=== PATIENT | male | born 1980 | race Caucasian/White ===

== ENCOUNTER 2018-07-17 18:59 | Observation (INO) ==
[2018-07-17 20:16] LABS: Bilirubin,Urine Negative (Negative); Blood,Urine Negative (Negative); Clarity,Urine Clear (Clear); Color,Urine Yellow (Yellow); Glucose,Urine (UA) Normal (Normal); Ketones,Urine Negative (Negative); Leukocyte Esterase,Urine Negative (Negative); Nitrite,Urine Negative (Negative); Protein,Urine Negative (Neg-Trace); Specific Gravity,Urine 1.018 (1.010-1.025); Urobilinogen,Urine Normal (Normal)
[2018-07-17 20:17] LABS: Basophils % 0.4 %; Eosinophils # 0.3 K/mcL (0.0-0.6); Eosinophils % 3.1 %; Hematocrit 42.3 % (37.5-50.1); Immature Granulocytes % 0.1 % (0-4); Lymphocytes # 2.9 K/mcL (0.6-4.6); Lymphocytes % 29.2 %; Mean Corpuscular HGB Conc 33.1 g/dL (31.6-35.5); Mean Corpuscular Hemoglobin 28.7 pg (28.0-33.3); Mean Corpuscular Volume 86.7 fL (83.0-100.0); Mean Platelet Volume 11.2 fL (9.4-12.4); Monocytes # 0.6 K/mcL (0.0-1.3); Platelet Count 205 K/mcL (140-400); Red Blood Count 4.88 M/mcL (4.19-5.50); Red Cell Distribution Width 13.2 % (11.5-14.5); Segmented Neutrophils % 61.2 %
[2018-07-17] MEDS ORDERED: Isovue-370 500 ML INFUS..BTL IV ONE (20:23)
[2018-07-17 20:35] LABS: Troponin I < 0.03 ng/mL (< 0.04)
[2018-07-17 20:37] LABS: Amphetamine Screen,Urine Negative ng/mL (Cutoff=1000); Barbiturate Screen,Urine Negative ng/mL (Cutoff=200); Benzodiazepines Screen,Urine Negative ng/mL (Cutoff=200); Cannabinoid Screen,Urine Negative ng/mL (Cutoff = 50); Cocaine Screen,Urine Negative ng/mL (Cutoff= 300); Opiate Screen,Urine Negative ng/mL (Cutoff=300); Phencyclidine Screen,Urine Negative ng/mL (Cutoff=25)
[2018-07-17 20:38] LABS: BUN/Creatinine Ratio 17 (6-26); Blood Urea Nitrogen 18 mg/dL (6-20); Calcium 9.6 mg/dL (8.6-10.3); Carbon Dioxide 30 mEq/L (23-29); Chloride 103 mEq/L (98-107); Glucose 118 mg/dL (70-105); Osmolality,Calculated 293 (280-300); Potassium 4.1 mEq/L (3.5-5.1); Sodium 140 mEq/L (136-145); eGFR For Non-African Americans > 60 (> 60)
[2018-07-17] MEDS ORDERED: Aspirin 81 MG TAB.CHEW PO ONE (21:14)
--- NOTE | 2018-07-17 21:21 | Emergency Department Note ---
Disposition Clinical Impression: Left face and left arm tingling Chest pain Qualifiers: Chest pain type: unspecified Qualified Code(s): R07.9 - Chest pain, unspecified Disposition: Admitted As Inpatient Condition: Good Referrals: NONE,PCP [Primary Care Provider] - Time of Disposition: 21:23 Chest Pain HPI - General Chief Complaint: ED Chest Pain Stated Complaint: CP Time Seen by Provider: 07/17/18 19:03 Source: patient, family Limitations: no limitations Vital Signs Reviewed: Yes Nursing Notes Reviewed: Yes - History of Present Illness HPI Narrative: Patient presents to the ED from the [facility] with the chief complaint of chest pain. He denies any medical history, but states he is in the [facility]. Denies any drug use. States that about 4 hours ago he started having left- sided centralized chest pressure and heaviness that radiates into his left arm. States he has never had pain like this before. He does state that he just found out his father has about 90 days left to live due to liver cirrhosis and is not a transplant candidate. States that he started "freaking out after that." He is also complaining of some left-sided facial tingling and left hand tingling that started around that time as well. States he also has a migraine. Denies any fever or chills. No changes in vision. No difficulty breathing. No abdominal pain, nausea, vomiting or diarrhea. No rash. No pain or swelling in his legs. Severity scale (1-10): 7 - Related Data Allergies Allergy/AdvReac Type Severity Reaction Status Date / Time No Known Allergies Allergy Verified 07/17/18 19:11 Review of Systems: As reviewed in the HPI. All other systems reviewed are negative or normal. Chest Pain PMH - Past Medical History Medical history: Reports: hypertension - Social History Smoking Status: Current every day smoker Alcohol use: Reports: none Drug use: Reports: none Physical Exam CONSTITUTIONAL: [well appearing, alert and in no acute distress] EYES: [EOMI, clear conjunctiva, PERRLA] HENT: [Normocephalic, atraumatic, moist mucus membranes, normal oropharynx] NECK: [normal inspection, full ROM, trachea midline, no obvious swelling] PULMONARY: [normal lung sounds bilaterally, normal chest rise and fall, no respiratory distress or stridor, no wheezes, no rales, no rhonchi CARDIOVASCULAR: [regular rate, regular rhythm, normal heart sounds, no murmurs, distal extremities are warm and well perfused] GASTROINSTESTINAL: [soft, non-tender, non-rigid, non-distended, no guarding, no rebound, normal bowel sounds] GENITOURINARY/RECTAL: [deferred] NEUROLOGIC: [Alert, oriented x3, normal speech, moves all extremities, GCS 15, cranial nerves II through XII intact, strength and sensation normal throughout area. Patient does report tingling in his left face and left hand on the palmar aspect, but has normal sensation. Normal gait] EXTREMITIES: [Normal inspection, full ROM, no tenderness, no pedal edema, normal capillary refill] MUSCULOSKELETAL: [no gross deformities, atraumatic] SKIN: [No cyanosis, no diaphoresis, normal color, warm, no rash] PSYCHIATRIC: [anxious] - General Limitations: no limitations General appearance: alert, in no apparent distress Course Course Narrative: Patient presenting with multiple symptoms. We will get cardiac workup and head CT. Chest x-ray showed a potential aortic abnormality which could be related to patient positioning, however, he is hypertensive and complaining of left-sided chest pain, so we will get a CTA of his chest, abdomen and pelvis. CT of his head showed a possible left basal ganglia infarct which is not consistent with his current clinical symptoms, but they did recommend an MRI. Patient was admitted to the hospital service under Dr. Hidalgo for further cardiac evaluation and MRI in the morning. CTA negative for dissection Vital Signs Temperature 98.7 F 07/17/18 19:09 Pulse Rate 96 07/17/18 19:09 Respiratory Rate 16 07/17/18 19:09 Blood Pressure 147/103 07/17/18 19:09 O2 Sat by Pulse Oximetry 98 07/17/18 19:09 Temperature 98.7 F 07/17/18 19:09 Pulse Rate 96 07/17/18 19:09 Respiratory Rate 16 07/17/18 19:09 Blood Pressure 147/103 07/17/18 19:09 O2 Sat by Pulse Oximetry 98 07/17/18 19:09 Oxygen Delivery Oxygen Delivery Room Air Chest Pain - Medical Records Medical records reviewed: Yes I reviewed the patient's medical records. - Lab Data Lab results reviewed: Yes I reviewed the patient's lab results. Result diagrams: 07/17/18 19:52 07/17/18 19:52 Lab Results 07/17/18 07/17/18 07/17/18 Range/Units 19:52 19:52 19:52 WBC 9.8 (4.3-11.1) K/mcL RBC 4.88 (4.19-5.50) M/mcL Hgb 14.0 (12.9-16.9) g/dL Hct 42.3 (37.5-50.1) % MCV 86.7 (83.0-100.0) fL MCH 28.7 (28.0-33.3) pg MCHC 33.1 (31.6-35.5) g/dL RDW 13.2 (11.5-14.5) % Plt Count 205 (140-400) K/mcL MPV 11.2 (9.4-12.4) fL Immature Gran % 0.1 (0-4) % Seg Neutrophils % 61.2 % Lymphocytes % 29.2 % Monocytes % 6.0 % Eosinophils % 3.1 % Basophils % 0.4 % Neutrophils # 6.0 (1.6-8.9) K/mcL Lymphocytes # 2.9 (0.6-4.6) K/mcL Monocytes # 0.6 (0.0-1.3) K/mcL Eosinophils # 0.3 (0.0-0.6) K/mcL Basophils # 0.0 (0.0-0.2) K/mcL Sodium (136-145) mEq/L Potassium (3.5-5.1) mEq/L Chloride (98-107) mEq/L Carbon Dioxide (23-29) mEq/L BUN (6-20) mg/dL Creatinine (0.70-1.30) mg/dL Est GFR ( Amer) (> 60) Est GFR (Non-Af Amer) (> 60) BUN/Creatinine Ratio (6-26) Glucose (70-105) mg/dL Calculated Osmolality (280-300) Calcium (8.6-10.3) mg/dL Troponin I (< 0.04) ng/mL Urine Color Yellow (Yellow) Urine Clarity Clear (Clear) Urine pH 7.0 (5.0-8.0) pH Units Ur Specific [place] 1.018 (1.010-1.025) Urine Protein Negative (Neg-Trace) mg/dL Urine Glucose (UA) Normal (Normal) mg/dL Urine Ketones Negative (Negative) mg/dL Urine Blood Negative (Negative) Urine Nitrite Negative (Negative) Urine Bilirubin Negative (Negative) Urine Urobilinogen Normal (Normal) mg/dL Ur Leukocyte Esterase Negative (Negative) Ur Culture Indicated? NO (NO) Urine Opiates Screen Negative (Pibqur=326) ng/mL Ur Barbiturates Screen Negative (Kxpzed=707) ng/mL Ur Phencyclidine Scrn Negative (Cutoff=25) ng/mL Ur Amphetamines Screen Negative (Qkysjg=9480) ng/mL U Benzodiazepines Scrn Negative (Weuwcy=638) ng/mL Urine Cocaine Screen Negative (Cutoff= 300) ng/mL U Marijuana (THC) Screen Negative (Cutoff = 50) ng/mL Ur Drug Screen Interp See Below 07/17/18 Range/Units 19:52 WBC (4.3-11.1) K/mcL RBC (4.19-5.50) M/mcL Hgb (12.9-16.9) g/dL Hct (37.5-50.1) % MCV (83.0-100.0) fL MCH (28.0-33.3) pg MCHC (31.6-35.5) g/dL RDW (11.5-14.5) % Plt Count (140-400) K/mcL MPV (9.4-12.4) fL Immature Gran % (0-4) % Seg Neutrophils % % Lymphocytes % % Monocytes % % Eosinophils % % Basophils % % Neutrophils # (1.6-8.9) K/mcL Lymphocytes # (0.6-4.6) K/mcL Monocytes # (0.0-1.3) K/mcL Eosinophils # (0.0-0.6) K/mcL Basophils # (0.0-0.2) K/mcL Sodium 140 (136-145) mEq/L Potassium 4.1 (3.5-5.1) mEq/L Chloride 103 (98-107) mEq/L Carbon Dioxide 30 H (23-29) mEq/L BUN 18 (6-20) mg/dL Creatinine 1.07 (0.70-1.30) mg/dL Est GFR ( Amer) > 60 (> 60) Est GFR (Non-Af Amer) > 60 (> 60) BUN/Creatinine Ratio 17 (6-26) Glucose 118 H (70-105) mg/dL Calculated Osmolality 293 (280-300) Calcium 9.6 (8.6-10.3) mg/dL Troponin I < 0.03 (< 0.04) ng/mL Urine Color (Yellow) Urine Clarity (Clear) Urine pH (5.0-8.0) pH Units Ur Specific [place] (1.010-1.025) Urine Protein (Neg-Trace) mg/dL Urine Glucose (UA) (Normal) mg/dL Urine Ketones (Negative) mg/dL Urine Blood (Negative) Urine Nitrite (Negative) Urine Bilirubin (Negative) Urine Urobilinogen (Normal) mg/dL Ur Leukocyte Esterase (Negative) Ur Culture Indicated? (NO) Urine Opiates Screen (Dvfnpy=363) ng/mL Ur Barbiturates Screen (Pprapr=066) ng/mL Ur Phencyclidine Scrn (Cutoff=25) ng/mL Ur Amphetamines Screen (Znqwlm=9863) ng/mL U Benzodiazepines Scrn (Cujtqc=524) ng/mL Urine Cocaine Screen (Cutoff= 300) ng/mL U Marijuana (THC) Screen (Cutoff = 50) ng/mL Ur Drug Screen Interp - Radiology Data Radiology results reviewed: Yes I reviewed the patient's radiology results. - EKG Data EKG attestation: Yes I reviewed and interpreted this EKG. EKG results narrative: Sinus rhythm, rate 97, normal axis, no acute ischemic change Heart Score - Score History: Moderately Suspicious EKG: Non Specific repolarisation Disturbance Age: Less than 45 Risk Factors: 1-2 risk factors Troponin: Less than normal limit HEART Score Total: 3
--- NOTE | 2018-07-17 21:45 | Emergency Department Note ---
Disposition Clinical Impression: Left face and left arm tingling Chest pain Qualifiers: Chest pain type: unspecified Qualified Code(s): R07.9 - Chest pain, unspecified Disposition: Admitted As Inpatient Condition: Good General Adult HPI - General Chief complaint: ED Chest Pain Stated complaint: CP Time Seen by Provider: 07/17/18 19:03 Source: patient, family Limitations: no limitations - History of Present Illness Pain Scale: 7 - Related Data Allergies Allergy/AdvReac Type Severity Reaction Status Date / Time No Known Allergies Allergy Verified 07/17/18 19:11 Past Medical History - Past Medical History Medical history: Reports: hypertension - Social History Smoking Status: Current every day smoker Alcohol use: Reports: none Drug use: Reports: none Physical Exam - General Limitations: no limitations General appearance: alert, in no apparent distress Course Vital Signs Temperature 98.7 F 07/17/18 19:09 Pulse Rate 96 07/17/18 19:09 Respiratory Rate 16 07/17/18 19:09 Blood Pressure 147/103 07/17/18 19:09 O2 Sat by Pulse Oximetry 98 07/17/18 19:09 Temperature 98.7 F 07/17/18 19:09 Pulse Rate 81 07/17/18 21:24 Respiratory Rate 14 07/17/18 21:24 Blood Pressure 146/94 07/17/18 21:24 O2 Sat by Pulse Oximetry 100 07/17/18 21:24 Oxygen Delivery Oxygen Delivery Room Air Medical Decision Making - Lab Data Result diagrams: 07/17/18 19:52 07/17/18 19:52 Lab Results 07/17/18 07/17/18 07/17/18 Range/Units 19:52 19:52 19:52 WBC 9.8 (4.3-11.1) K/mcL RBC 4.88 (4.19-5.50) M/mcL Hgb 14.0 (12.9-16.9) g/dL Hct 42.3 (37.5-50.1) % MCV 86.7 (83.0-100.0) fL MCH 28.7 (28.0-33.3) pg MCHC 33.1 (31.6-35.5) g/dL RDW 13.2 (11.5-14.5) % Plt Count 205 (140-400) K/mcL MPV 11.2 (9.4-12.4) fL Immature Gran % 0.1 (0-4) % Seg Neutrophils % 61.2 % Lymphocytes % 29.2 % Monocytes % 6.0 % Eosinophils % 3.1 % Basophils % 0.4 % Neutrophils # 6.0 (1.6-8.9) K/mcL Lymphocytes # 2.9 (0.6-4.6) K/mcL Monocytes # 0.6 (0.0-1.3) K/mcL Eosinophils # 0.3 (0.0-0.6) K/mcL Basophils # 0.0 (0.0-0.2) K/mcL Sodium (136-145) mEq/L Potassium (3.5-5.1) mEq/L Chloride (98-107) mEq/L Carbon Dioxide (23-29) mEq/L BUN (6-20) mg/dL Creatinine (0.70-1.30) mg/dL Est GFR ( Amer) (> 60) Est GFR (Non-Af Amer) (> 60) BUN/Creatinine Ratio (6-26) Glucose (70-105) mg/dL Calculated Osmolality (280-300) Calcium (8.6-10.3) mg/dL Troponin I (< 0.04) ng/mL Urine Color Yellow (Yellow) Urine Clarity Clear (Clear) Urine pH 7.0 (5.0-8.0) pH Units Ur Specific [place] 1.018 (1.010-1.025) Urine Protein Negative (Neg-Trace) mg/dL Urine Glucose (UA) Normal (Normal) mg/dL Urine Ketones Negative (Negative) mg/dL Urine Blood Negative (Negative) Urine Nitrite Negative (Negative) Urine Bilirubin Negative (Negative) Urine Urobilinogen Normal (Normal) mg/dL Ur Leukocyte Esterase Negative (Negative) Ur Culture Indicated? NO (NO) Urine Opiates Screen Negative (Esxxdk=113) ng/mL Ur Barbiturates Screen Negative (Jxrnip=760) ng/mL Ur Phencyclidine Scrn Negative (Cutoff=25) ng/mL Ur Amphetamines Screen Negative (Dogzvv=4437) ng/mL U Benzodiazepines Scrn Negative (Drrrcb=755) ng/mL Urine Cocaine Screen Negative (Cutoff= 300) ng/mL U Marijuana (THC) Screen Negative (Cutoff = 50) ng/mL Ur Drug Screen Interp See Below 07/17/18 Range/Units 19:52 WBC (4.3-11.1) K/mcL RBC (4.19-5.50) M/mcL Hgb (12.9-16.9) g/dL Hct (37.5-50.1) % MCV (83.0-100.0) fL MCH (28.0-33.3) pg MCHC (31.6-35.5) g/dL RDW (11.5-14.5) % Plt Count (140-400) K/mcL MPV (9.4-12.4) fL Immature Gran % (0-4) % Seg Neutrophils % % Lymphocytes % % Monocytes % % Eosinophils % % Basophils % % Neutrophils # (1.6-8.9) K/mcL Lymphocytes # (0.6-4.6) K/mcL Monocytes # (0.0-1.3) K/mcL Eosinophils # (0.0-0.6) K/mcL Basophils # (0.0-0.2) K/mcL Sodium 140 (136-145) mEq/L Potassium 4.1 (3.5-5.1) mEq/L Chloride 103 (98-107) mEq/L Carbon Dioxide 30 H (23-29) mEq/L BUN 18 (6-20) mg/dL Creatinine 1.07 (0.70-1.30) mg/dL Est GFR ( Amer) > 60 (> 60) Est GFR (Non-Af Amer) > 60 (> 60) BUN/Creatinine Ratio 17 (6-26) Glucose 118 H (70-105) mg/dL Calculated Osmolality 293 (280-300) Calcium 9.6 (8.6-10.3) mg/dL Troponin I < 0.03 (< 0.04) ng/mL Urine Color (Yellow) Urine Clarity (Clear) Urine pH (5.0-8.0) pH Units Ur Specific [place] (1.010-1.025) Urine Protein (Neg-Trace) mg/dL Urine Glucose (UA) (Normal) mg/dL Urine Ketones (Negative) mg/dL Urine Blood (Negative) Urine Nitrite (Negative) Urine Bilirubin (Negative) Urine Urobilinogen (Normal) mg/dL Ur Leukocyte Esterase (Negative) Ur Culture Indicated? (NO) Urine Opiates Screen (Pbqziv=099) ng/mL Ur Barbiturates Screen (Ncqnye=450) ng/mL Ur Phencyclidine Scrn (Cutoff=25) ng/mL Ur Amphetamines Screen (Dilwbq=1678) ng/mL U Benzodiazepines Scrn (Sslglt=664) ng/mL Urine Cocaine Screen (Cutoff= 300) ng/mL U Marijuana (THC) Screen (Cutoff = 50) ng/mL Ur Drug Screen Interp Attestation Statement - Attestation Attestation: I examined this patient and my medical decision-making was reviewed with the Resident Physician. I agree with the documented findings, disposition and treatment plan as described except to the extent set forth below. 38 yo M under lots of stress and anxiety presents with CP, headache, left face and arm tingling/numbness. no lab abn ekg ok admit for obs. CT head shows odd density in left basal ganglia. vss ekg ok
[2018-07-18] MEDS ORDERED: Acetaminophen 325 MG TABLET PO PRN (02:25)
[2018-07-18] MEDS ORDERED: Naloxone 0.4 MG/ML INJ IVP PRN (02:25)
--- NOTE | 2018-07-18 02:40 | Internal Med History&Physical ---
Date of Encounter: 07/18/18 Time of Encounter: 00:10 Internal Medicine - H&P: HPI Chief complaint: chest pain Admitted From: Emergency Dept Plans for Post Hospital Care: Home History of present illness: Mr. Quiñones is a 38 year old male who presents with a one day history of chest pain, pain and numbness which radiate to his left arm and shoulder, and mild shortness of breath. He was seen in the ER and had negative initial workup. He did have a TIA of the chest and abdomen which were negative. He also had a head CT given his left arm numbness. CT of the head revealed focal hypodensity in the left basal ganglia which was age indeterminate. As such, he was admitted to hospitalist service for further workup and care. Upon my assessment of the patient, patient is now chest pain-free. He does confirm history of chest pain with associated radiation to his left arm and neck and associated left arm numbness and shortness of breath. He has never had cardiac workup before. Regarding the head CT findings, he denies any prior stroke or injury. He lives in a [facility] house currently and has a history of extensive drug abuse in the past. He has been clean for 8 months now. He used to inject all kinds of drugs, including cocaine. Given his IV drug abuse history, I'm concerned about possible neurovascular complication, particularly with cocaine. Family history is positive for heart disease but negative for stroke. Past Med Surg Social Fam HX - Past Medical History Attestation: Yes The following information was validated with the patient. Source: patient Medical history: hypertension Psychiatric history: no psych history - Past Surgical History Surgical History: herniorrhaphy Additional surgical history: right testicle removed. 12 hernia repairs. 2 nose operations - Social History Smoking Status: Current every day smoker Alcohol use: none Drug use: none, other (former heavy IVDA; last use 8 months ago) Current living situation: Other ([facility] house) Activity Level: Independent ambulation - Family History Mother Hx Family Cardiac Disorders: Yes (HTN) Hx Family Endocrine Disorder: Yes (DM) Maternal Grandmother Living Status: Hx Family Neurologic Disorders: Yes (Stroke) Internal Medicine - H&P: Meds Metoprolol Tartrate [Lopressor] 50 mg PO DAILY 07/17/18 [History] Allergy/AdvReac Type Severity Reaction Status Date / Time No Known Allergies Allergy Verified 07/17/18 19:11 - Constitutional Constitutional: no chills, no fever(s), no night sweats - EENT Eyes: no blurry vision, no change in vision Ears: no ear pain, no tinnitus Nose, mouth and throat: no nasal congestion, no sinus pressure, no sore throat - Cardiovascular Cardiovascular ROS IM: chest pain, dyspnea, no diaphoresis, no orthopnea, no paroxysmal nocturnal dyspnea - Respiratory Respiratory: no cough, no hemoptysis, no chest congestion, no excessive phlegm production, no change in phlegm color - Gastrointestinal Gastrointestinal: no abdominal pain, no diarrhea, no hematemesis, no hematochezia, no melena, no nausea, no vomiting - Genitourinary Genitourinary ROS male: no dysuria, no flank pain, no hematuria - Musculoskeletal Musculoskeletal ROS IM: arthralgias (left shoulder), no back pain - Integumentary Integumentary IM: no rash, no jaundice - Neurological Neurological ROS: no abnormal movements, no abnormal speech, no convulsions, no dizziness, no focal weakness, no frequent falls, no headache(s) - Psychiatric Psychiatric: no anxiety, no depression - Endocrine Endocrine IM: no polydipsia, no polyuria - Allergic/Immunologic Allergic/Immunologic: no wheezing, no GI upset with certain foods - Constitutional Vitals: Temp Pulse Resp BP Pulse Ox 97.7 F 66 16 143/90 95 07/17/18 22:29 07/17/18 22:29 07/17/18 22:29 07/17/18 22:29 07/17/18 22:29 General appearance: Present: cooperative, A&O X 3, pleasant, answers questions appropriately Exam: see below - Head Head exam: Present: atraumatic, normal inspection - Eye Eye exam: Present: EOMI, PERRL. Absent: scleral icterus Pupils: Present: normal accommodation - ENT ENT exam: Present: mucous membranes dry, normal exam, normal oropharynx - Neck Neck exam general surgery: Present: full ROM, supple. Absent: tenderness, nuchal rigidity, thyromegaly - Respiratory Respiratory exam: Present: chest wall tenderness (sternum), CTAB. Absent: rales, respiratory distress, rhonchi, wheezes - Cardiovascular Cardiovascular exam: Present: RRR, +S1, +S2. Absent: diastolic murmur, systolic murmur - GI/Abdominal GI/Abdominal exam: Present: normal bowel sounds, soft. Absent: guarding, hepatomegaly, mass, rebound, splenomegaly, tenderness - Extremities Exam Extremities exam: Present: full ROM, normal capillary refill, warm, radial pulses palpable and symmetrical. Absent: joint swelling, pedal edema, tenderness - Back Exam Back exam: Absent: CVA tenderness (L), CVA tenderness (R) - Neurological Exam Neurological exam: Present: alert, CN II-XII intact, oriented X3, no focal deficits, strengths equal and symetr throughout - Psychiatric Psychiatric exam: Present: normal affect, normal mood - Skin Skin exam: Present: dry, intact, warm Internal Med - H&P Results - Labs CBC & Chem 7: 07/17/18 19:52 07/17/18 19:52 Labs: Short CBC 07/17/18 Range/Units 19:52 WBC 9.8 (4.3-11.1) K/mcL Hgb 14.0 (12.9-16.9) g/dL Hct 42.3 (37.5-50.1) % Plt Count 205 (140-400) K/mcL Neutrophils # 6.0 (1.6-8.9) K/mcL BMP 07/17/18 19:52 Sodium 140 Potassium 4.1 Chloride 103 Carbon Dioxide 30 H BUN 18 Creatinine 1.07 Glucose 118 H Calcium 9.6 Cardiac Enzymes 07/17/18 Range/Units 19:52 Troponin I < 0.03 (< 0.04) ng/mL Urine 07/17/18 Range/Units 19:52 Urine Color Yellow (Yellow) Urine Clarity Clear (Clear) Urine pH 7.0 (5.0-8.0) pH Units Ur Specific [place] 1.018 (1.010-1.025) Urine Protein Negative (Neg-Trace) mg/dL Urine Glucose (UA) Normal (Normal) mg/dL - EKG Data -: EKG Interpreted by Myself - EKG Data Prior EKG available for review: no EKG comments: 07/18/18 02:57 NSR; no acute ST-T changes - Impressions ITS Impressions Chest X-Ray 07/17/18 19:18 IMPRESSION: No acute cardiopulmonary disease. Mild prominence of the ascending aorta may be related to rotation on this portable study. When the patient is able, follow-up PA and lateral examination the chest is recommended. D/ / Que Bhandari MD / Que Bhandari MD Interpreting Provider: Que Bhandari MD Head CT 07/17/18 19:19 IMPRESSION: Indeterminate focal hypodensity at level of left basal ganglia. Differential considerations include age-indeterminate infarct and dilated perivascular space. Further evaluation with MRI is recommended. No acute intracranial hemorrhage or mass effect. D/ / Beau Gallardo MD / Beau Gallardo MD Interpreting Provider: Beau Gallardo MD Abdomen/Pelvis CTA 07/17/18 20:23 IMPRESSION: 1. No acute injury of the thoracic or abdominal aorta. Specifically, no evidence for dissection. No aneurysmal dilatation is identified. 2. No acute intrathoracic or intra-abdominal process identified. 3. Evidence for remote granulomatous disease. D/ / Severiano Guzman MD / Severiano Guzman MD Interpreting Provider: Severiano Guzman MD Chest CTA 07/17/18 20:23 IMPRESSION: 1. No acute injury of the thoracic or abdominal aorta. Specifically, no evidence for dissection. No aneurysmal dilatation is identified. 2. No acute intrathoracic or intra-abdominal process identified. 3. Evidence for remote granulomatous disease. D/ / Severiano Guzman MD / Severiano Guzman MD Interpreting Provider: Severiano Guzman MD - Diagnostic Studies Chest x-ray Status: image reviewed by me (negative) - Assessment and plan (1) Chest pain Current Visit: Yes Status: Acute Assessment and plan: 1. Will trend troponins and EKG's. 2. Will order ECHO. 3. Outpatient vs inpatient stress testing once abnormal head CT findings addressed. Qualifiers: Chest pain type: intercostal pain Qualified Code(s): R07.82 - Intercostal pain (2) Abnormal head CT Current Visit: Yes Status: Acute Assessment and plan: 1. NO focal neurologic deficits. 2. I'm concerned he may have had an old neurovascular insult from previous IVDA (cocaine). 3. Will order MRI brain to evaluate. (3) DVT prophylaxis Current Visit: Yes Status: Acute Assessment and plan: 1. Heparin SQ.
[2018-07-18 03:13] LABS: Basophils % 0.5 %; Eosinophils # 0.4 K/mcL (0.0-0.6); Eosinophils % 4.5 %; Hematocrit 43.5 % (37.5-50.1); Hemoglobin 14.3 g/dL (12.9-16.9); Immature Granulocytes % 0.3 % (0-4); Lymphocytes % 37.7 %; Mean Corpuscular HGB Conc 32.9 g/dL (31.6-35.5); Mean Corpuscular Hemoglobin 28.4 pg (28.0-33.3); Mean Corpuscular Volume 86.5 fL (83.0-100.0); Mean Platelet Volume 11.2 fL (9.4-12.4); Monocytes # 0.6 K/mcL (0.0-1.3); Monocytes % 7.8 %; Neutrophils # 3.9 K/mcL (1.6-8.9); Platelet Count 200 K/mcL (140-400); Red Blood Count 5.03 M/mcL (4.19-5.50); Red Cell Distribution Width 13.1 % (11.5-14.5); Segmented Neutrophils % 49.2 %
[2018-07-18 03:20] LABS: INR 1.1; Prothrombin Time 11.9 Seconds (9.4-12.1)
[2018-07-18 03:23] LABS: Activated Partial Thrombo Time 35.1 Seconds (26.0-36.0)
[2018-07-18 03:29] LABS: Alanine Aminotransferase 27 Units/L (7-52); Albumin 4.2 g/dL (3.5-5.7); Albumin/Globulin Ratio 1.4 (1.1-2.2); Alkaline Phosphatase 81 Units/L (34-104); Aspartate Amino Transferase 17 Units/L (13-39); BUN/Creatinine Ratio 17 (6-26); Bilirubin,Total 0.3 mg/dL (0.3-1.0); Blood Urea Nitrogen 17 mg/dL (6-20); Calcium 9.4 mg/dL (8.6-10.3); Carbon Dioxide 25 mEq/L (23-29); Chloride 105 mEq/L (98-107); Chol/HDL Ratio 4.4 (0-4.9); Cholesterol 157 mg/dL (< 200); Globulin 2.9 g/dL (2.4-3.5); Glucose 96 mg/dL (70-105); HDL Cholesterol 36 mg/dL (40-59); LDL Cholesterol,Calculated 97 mg/dL (0-99); Magnesium 2.1 mg/dL (1.6-2.6); Osmolality,Calculated 285 (280-300); Potassium 4.2 mEq/L (3.5-5.1); Sodium 137 mEq/L (136-145); Total Protein 7.1 g/dL (6.4-8.9); Triglycerides 120 mg/dL (< 150); eGFR For Non-African Americans > 60 (> 60)
[2018-07-18] MEDS ORDERED: *HR* Heparin 5,000 UNIT/ML VIAL SQ SCH (06:00)
[2018-07-18] MEDS ORDERED: Aspirin 81 MG TAB.CHEW PO SCH (09:00)
--- NOTE | 2018-07-18 15:16 | Discharge Summary ---
- NOTES TO OUTPATIENT PROVIDER Notes to Outpatient Provider: Follow up with PCP in one week. please quit smoking. please go for outpatient stress test Orders not resulted at time of discharge: Pending orders 07/18/18 06:00 ECG 12 lead ECG [ECG] AM 0600 07/18/18 14:52 Troponin I Q6H Date of Encounter: 07/18/18 Time of Encounter: 15:09 - Discharge Diagnosis (1) Left face and left arm tingling Priority: Primary Status: Acute (2) TIA (transient ischemic attack) Priority: Secondary Status: Acute (3) Chest pain Priority: Primary Status: Acute Qualifiers: Chest pain type: intercostal pain Qualified Code(s): R07.82 - Intercostal pain (4) Abnormal head CT Priority: Primary Status: Acute (5) DVT prophylaxis Priority: Secondary Status: Acute Hospital course: Mr. 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 He was seen in the ER and had negative initial workup. He did have a CTA of the chest and abdomen which were negative. He also had a head CT given his left arm numbness. CT of the head revealed focal hypodensity in the left basal ganglia which was age indeterminate. Patient was admitted in the hospital and placed him on diagnostic cardiac sonographer. His his serial troponin X3 came back is negative. His EKG showed normal sinus rhythm with no acute ischemic changes, no ST T changes. Patient denied anymore chest pain. He denied anymore left-sided numbness. His MRI of Brain did not show any acute abnormality. He does have chronic dilated perivascular spaces in the basal ganglia bilaterally. At this point I did consumer credit counselor the patient to quit smoking and start taking aspirin 81 mg PO daily. Also scheduled him for outpatient nuclear exercise stress test. - Time Spent with Patient Total time spent providing and/or coordinating discharge services: - Discharge Medications Prescriptions: Aspirin 81 mg PO DAILY #30 tab.chew Nicotine Patch [Nicoderm] 14 mg TD DAILY #30 patch.td24 Home Medications: Metoprolol Tartrate [Lopressor] 50 mg PO DAILY 07/17/18 [History] Aspirin 81 mg PO DAILY #30 tab.chew 07/18/18 [Rx] Nicotine Patch [Nicoderm] 14 mg TD DAILY #30 patch.td24 07/18/18 [Rx] Allergies/Adverse Reactions: Allergy/AdvReac Type Severity Reaction Status Date / Time No Known Allergies Allergy Verified 07/17/18 19:11 Date of admission: 07/17/18 21:30 Primary care physician: PCP NONE - Constitutional Vitals: Temp Pulse Resp BP Pulse Ox 97.5 F L 69 19 123/84 96 07/18/18 11:17 07/18/18 11:17 07/18/18 11:17 07/18/18 11:17 07/18/18 11:17 General appearance: Present: cooperative, A&O X 3, pleasant, answers questions appropriately Exam: Gen: Alert, awake, Oriented to time,place and person Chest: Diminished breath sounds B/L, No wheezing, No crackles, No rales Heart: S1S2+ RRR No murmurs Abd: Soft, NT, BS +, No organomegaly Ext: No edema, pulses are palpable, No calf tenderness Neuro : no neuro deficits noticed Skin: No rash. - Patient Status Disposition: Home, Self-Care Condition: Good Overall status at discharge: patient is back to baseline - Discharge Instructions Follow Up With: NONE,PCP [Primary Care Provider] - Forms: ED Satisfaction Letter - Diet and Activity Activity: increase activity as tolerated Diet: low salt diet
[2018-07-18 15:20] VITALS: BP 134/92
--- NOTE | 2018-07-20 08:43 | Electrocardiograph Report ---
[address] [place], [place] [address] Test Date: 2018-07-17 Pat Name: Gregory Quiñones Department: EXAM2 Room: 3B Gender: M [employer]: : 1980 Requested By: Christian Valdez Order Number: [id number] Reading MD: Shellie Child Measurements Intervals [place] Rate: 97 P: 47 [place]: 178 QRS: 67 QRSD: 98 T: 58 QT: 342 QTc: 435 Interpretive Statements Sinus rhythm Electronically Signed On 07-20-2018 8:41:36 EST by Shellie Child
== END 2018-07-18 16:51 | disposition home or self-care (01) ==
LOC: EMEROOARM 18:59 → 3BNU 18:59
PROVIDERS: ADMIT Pediatrics; ATTEND Pediatrics